=== PATIENT | female | born 1985 | race Caucasian/White ===

== ENCOUNTER 2016-10-11 16:54 | Emergency (ER) | payer OTHER ==
--- NOTE | ~2016-10-11 | CR142 ---
[facility] A Service of [facility] & [facility] RADIOLOGY TEXT RESULTS PATIENT: JOHNATHAN PUGA LOCATION: SED : 81 UNIT #: [id number] AGE: [address]: Evelyn Donald SEX: F ORDER DR: [id number] [address] [address] [id number] E MR#: [id number] Acc #: [id number] NAME: JOHNATHAN PUGA : 1985 SEX: F STUDY DATE/TIME: 10/11/2016 17:17 UNIT: SED ROOM: STUDY DESCRIPTION: CR Hand Min 3 Views Rt Attending Physician: Evelyn Donald Pa-C Ordering Physician: Evelyn Donald Pa-C MEDICAL IMAGING REPORT This report is preliminary unless electronic signature is present. EXAM Right hand 3 views HISTORY Smashed thumb in door today. Pain. FINDINGS 3 views of the right thumb demonstrate no fracture, dislocation or arthritic inflammatory change. Soft tissues unremarkable. Remainder if the right hand unremarkable. IMPRESSION Negative right thumb. Dictated by... Nino Hastings M.D. THIS IS AN ELECTRONICALLY VERIFIED REPORT Nino Hastings M.D. at 10/11/2016 10:27 PM Marizol TD: 10/11/2016 22:01 JOB #: [id number] MEDICAL IMAGING REPORT Page 1 of 1
[~2016-10-11 16:54] MED LIST: AMOXICILLIN875 MG PO; CERTAGEN PO; CLARITIN10 MG PO; KETOPROFEN PO; NO MEDICATIONS; PHENERGAN; PRENATAL1 TA1; TAMIFLU75 M1 PO; ZITHROMAX PO
[2016-10-11] MEDS ORDERED: NO MEDICATIONS (16:57)
== END 2016-10-11 18:00 | disposition home or self-care (01) ==
LOC: SED 16:54
DX: S60.111A Contusion of right thumb with damage to nail, initial encounter (principal); Z91.040 Latex allergy status; Z88.0 Allergy status to penicillin; V09.9XXA Pedestrian injured in unspecified transport accident, initial encounter; Y92.009 Unspecified place in unspecified non-institutional (private) residence as the place of occurrence of the external cause
CPT/HCPCS: 11740; 73130; 99283